=== PATIENT | female | born 1945 | race Caucasian/White ===

== ENCOUNTER 2016-08-03 11:49 | Outpatient (CLI) | payer MEDICARE ==
[2016-08-03 12:25] LABS: #Basophils 0.1 thou/uL (0.0-0.2); #Eosinphils 0.1 thou/uL (0.0-0.7); #Monocytes 0.4 thou/uL (0.11-0.59); #Neutrophils 3.5 thou/uL (1.40-6.50); %Eosinophils 1.4 % (0.0-10.0); %Lymphocytes 32.9 % (21.0-51.0); %Monocytes 7.3 % (0.0-10.0); Hematocrit 45.5 % (36.0-47.0); Mean Platelet Volume 5.8 fL (7.4-10.4); Red Blood Cell (RBC) Count 4.88 mill/uL (4.20-5.40)
[2016-08-03 12:32] LABS: ALT (SGPT) 25 U/L (0-55); AST (SGOT) 25 U/L (5-34); Alkaline Phosphatase 84 U/L (40-150); Anion Gap 17 mmol/L (10-20); BUN (Urea Nitrogen) 16 mg/dL (9.8-20.1); Bilirubin, Direct 0.2 mg/dL (0.1-0.3); Bilirubin, Total 0.6 mg/dL (0.2-1.2); Calc. Creatinine Clearance 0 mL/min (70-130); Calcium 9.3 mg/dL (7.8-10.44); Carbon Dioxide 18 mmol/L (23-31); Chloride 110 mmol/L (98-107); Estimated GFR-MDRD 68; LDL Cholesterol, Calculated 80 mg/dL; Protein, Total 7.3 g/dL (5.8-8.1)
== END 2016-08-03 11:50 | disposition home or self-care (01) ==
LOC: NAVSJIPCSP 11:49
PROVIDERS: ATTEND Family Medicine
DX: E78.00 Pure hypercholesterolemia, unspecified (principal); E11.9 Type 2 diabetes mellitus without complications; I10 Essential (primary) hypertension; H66.90 Otitis media, unspecified, unspecified ear; Z79.899 Other long term (current) drug therapy
CPT/HCPCS: 36415; 80048; 80061; 80076; 83036; 84443; 85025

== ENCOUNTER 2016-08-23 13:59 | Outpatient (CLI) | payer MEDICARE | END 2016-08-23 14:00 | disposition home or self-care (01) | LOC: NAVSJIPCSP 13:59 | PROVIDERS: ATTEND Family Medicine | DX: N75.1 Abscess of Bartholin's gland (principal) | CPT/HCPCS: 87070; 87205 ==

== ENCOUNTER 2016-11-09 14:37 | Outpatient (CLI) | payer MEDICARE ==
[2016-11-09 15:49] LABS: ALT (SGPT) 22 U/L (8-55); AST (SGOT) 20 U/L (5-34); Albumin 3.9 g/dL (3.4-4.8); Alkaline Phosphatase 75 U/L (40-150); Anion Gap 16 mmol/L (10-20); BUN (Urea Nitrogen) 17 mg/dL (9.8-20.1); Bilirubin, Direct 0.1 mg/dL (0.1-0.3); Bilirubin, Total 0.3 mg/dL (0.2-1.2); Calc. Creatinine Clearance 0 mL/min (70-130); Calcium 9.1 mg/dL (7.8-10.44); Carbon Dioxide 22 mmol/L (23-31); Cardiac Risk 3.6 (Less than 4.5); Chloride 109 mmol/L (98-107); Cholesterol 126 mg/dL (< 200 Desired); Estimated GFR-MDRD 66; Glucose 110 mg/dL (80-115); HDL Cholesterol 35 mg/dL (>60 Neg Risk); LDL Cholesterol, Calculated 44 mg/dL; Potassium 4.3 mmol/L (3.5-5.1); Protein, Total 6.8 g/dL (5.8-8.1); Sodium 143 mmol/L (136-145); Triglycerides 234 mg/dL (Less than 150)
[2016-11-09 15:59] LABS: #Basophils 0.1 thou/uL (0.0-0.2); #Eosinphils 0.1 thou/uL (0.0-0.7); #Lymphocytes 1.9 thou/uL (1.20-3.40); #Monocytes 0.5 thou/uL (0.11-0.59); #Neutrophils 3.6 thou/uL (1.40-6.50); %Basophils 1.1 % (0.0-1.0); %Eosinophils 2.3 % (0.0-10.0); %Lymphocytes 30.1 % (21.0-51.0); %Monocytes 8.1 % (0.0-10.0); %Neutrophils 58.3 % (42.0-75.0); Hemoglobin 13.9 g/dL (12.0-16.0); Mean Corpuscular Hemoglobin 30.7 pg (27.0-31.0); Mean Corpuscular Volume 93.1 fl (81.0-99.0); Mean Platelet Volume 6.2 fL (7.4-10.4); Platelet Count 205 thou/uL (130-400); RBC Distribution Width 11.8 % (11.5-14.5); Red Blood Cell (RBC) Count 4.53 mill/uL (4.20-5.40); White Blood Cell (WBC) Count 6.2 thou/uL (4.8-10.8)
[2016-11-09 17:16] LABS: Hemoglobin A1c 5.9 % (4.0-6.0)
== END 2016-11-09 14:38 | disposition home or self-care (01) ==
LOC: NAVSJIPCSP 14:37
PROVIDERS: ATTEND Nurse Practitioner Family
DX: E11.9 Type 2 diabetes mellitus without complications (principal); E78.00 Pure hypercholesterolemia, unspecified; I10 Essential (primary) hypertension; R53.83 Other fatigue; Z79.899 Other long term (current) drug therapy
CPT/HCPCS: 36415; 80048; 80061; 80076; 82607; 83036; 84443; 85025

== ENCOUNTER 2017-03-22 09:29 | Outpatient (CLI) | payer MEDICARE ==
[2017-03-22 12:29] LABS: #Basophils 0.1 thou/uL (0.0-0.2); #Eosinphils 0.1 thou/uL (0.0-0.7); #Monocytes 0.6 thou/uL (0.11-0.59); #Neutrophils 4.1 thou/uL (1.40-6.50); %Basophils 1.2 % (0.0-1.0); %Eosinophils 1.4 % (0.0-10.0); %Lymphocytes 28.6 % (21.0-51.0); %Monocytes 8.4 % (0.0-10.0); %Neutrophils 60.5 % (42.0-75.0); Mean Corpuscular HGB CONC 32.5 g/dL (32.0-36.0); Mean Corpuscular Hemoglobin 30.4 pg (27.0-31.0); Mean Corpuscular Volume 93.7 fl (81.0-99.0); Platelet Count 220 thou/uL (130-400); RBC Distribution Width 11.8 % (11.5-14.5); Red Blood Cell (RBC) Count 4.61 mill/uL (4.20-5.40); White Blood Cell (WBC) Count 6.8 thou/uL (4.8-10.8)
[2017-03-22 12:55] LABS: ALT (SGPT) 22 U/L (8-55); AST (SGOT) 20 U/L (5-34); Albumin 4.1 g/dL (3.4-4.8); Alkaline Phosphatase 83 U/L (40-150); Anion Gap 16 mmol/L (10-20); BUN (Urea Nitrogen) 12 mg/dL (9.8-20.1); Bilirubin, Direct 0.3 mg/dL (0.1-0.3); Bilirubin, Total 0.7 mg/dL (0.2-1.2); Calc. Creatinine Clearance 0 mL/min (70-130); Calcium 9.4 mg/dL (7.8-10.44); Carbon Dioxide 23 mmol/L (23-31); Cardiac Risk 3.2 (Less than 4.5); Chloride 105 mmol/L (98-107); Cholesterol 134 mg/dl (< 200 Desired); Estimated GFR-MDRD 76; Glucose 116 mg/dL (80-115); HDL Cholesterol 42 mg/dL (>60 Neg Risk); LDL Cholesterol, Calculated 58 mg/dL; Potassium 4.1 mmol/L (3.5-5.1); Sodium 140 mmol/L (136-145); Triglycerides 171 mg/dL (Less than 150)
[2017-03-22 13:07] LABS: Hemoglobin A1c 6.3 % (4.0-6.0)
== END 2017-03-22 09:30 | disposition home or self-care (01) ==
LOC: NAVSJIPCSP 09:29
PROVIDERS: ATTEND Family Medicine
DX: E11.9 Type 2 diabetes mellitus without complications (principal); I10 Essential (primary) hypertension; R53.83 Other fatigue; Z79.899 Other long term (current) drug therapy
CPT/HCPCS: 36415; 80048; 80061; 80076; 83036; 84443; 85025

== ENCOUNTER 2017-04-07 14:24 | Emergency (ER) | payer MEDICARE ==
[2017-04-07 15:50] LABS: #Basophils 0.1 thou/uL (0.0-0.2); #Lymphocytes 1.5 thou/uL (1.20-3.40); #Monocytes 0.5 thou/uL (0.11-0.59); #Neutrophils 5.7 thou/uL (1.40-6.50); %Basophils 0.8 % (0.0-1.0); %Eosinophils 0.6 % (0.0-10.0); %Lymphocytes 19.1 % (21.0-51.0); %Neutrophils 73.5 % (42.0-75.0); Hemoglobin 14.3 g/dL (12.0-16.0); Mean Corpuscular HGB CONC 32.6 g/dL (32.0-36.0); Mean Platelet Volume 6.8 fL (7.4-10.4); Platelet Count 234 thou/uL (130-400); RBC Distribution Width 11.5 % (11.5-14.5); Red Blood Cell (RBC) Count 4.76 mill/uL (4.20-5.40); White Blood Cell (WBC) Count 7.8 thou/uL (4.8-10.8)
[2017-04-07] MEDS ORDERED: Ondansetron HCl/PF 4 MG/2 ML Vial ONE ×2 (15:57→19:15)
[2017-04-07] MEDS ORDERED: Labetalol HCl 100 MG/20 ML VIAL ONE ×3 (15:57→19:49)
[2017-04-07 16:00] LABS: ALT (SGPT) 21 U/L (8-55); AST (SGOT) 18 U/L (5-34); Albumin 4.2 g/dL (3.4-4.8); Alkaline Phosphatase 87 U/L (40-150); Anion Gap 15 mmol/L (10-20); BUN (Urea Nitrogen) 13 mg/dL (9.8-20.1); Bilirubin, Total 0.7 mg/dL (0.2-1.2); CRP (Inflammatory) Less than 0.50 mg/dL (= or < 0.5); Calc. Creatinine Clearance 0 mL/min (70-130); Calcium 9.5 mg/dL (7.8-10.44); Carbon Dioxide 25 mmol/L (23-31); Chloride 105 mmol/L (98-107); Estimated GFR-MDRD 78; Globulin 3.4 g/dL (2.4-3.5); Glucose 136 mg/dL (80-115); Potassium 3.7 mmol/L (3.5-5.1); Protein, Total 7.6 g/dL (6.0-8.3); Sodium 141 mmol/L (136-145)
--- NOTE | 2017-04-07 16:20 | CT ---
CT BRAIN WITHOUT CONTRAST 04/07/17 HISTORY: Chronic headache and nausea. Neck pain. Eye pain. FINDINGS: No evidence of acute transcortical infarct, hemorrhage, midline shift or abnormal extra-axial fluid collections are seen. The ventricular size is normal and the basilar cisterns patent. There is a sma ll focus of decreased echogenicity in the left thalamus. The bony calvarium is intact. The visualiz ed paranasal sinuses and mastoid air cells are well aerated. IMPRESSION: 1. 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 2. No CT evidence of acute intracranial hemorrhage. POS: [facility]
--- NOTE | 2017-04-07 16:26 | CT ---
CT MAXILLOFACIAL NONCONTRAST: HISTORY: A 71-year-old female with chronic sinusitis. Headache and jaw pain. FINDINGS: The frontal, ethmoid, maxillary, and sphenoid sinuses are clear. Bilateral tympanomastoid cavities are grossly clear. Nasal cavity is clear. Nasal septal deviation to the left with left-sided nasal spur. No evidence of osseous dehiscence. No intraorbital edema, gas, or mass. Extraocular muscle s are symmetrical. No high-grade pathology of TMJs identified. No destructive osseous lesion invol ving the mandible. No pathology identified involving the submandibular, parotid, parapharyngeal, an d welding foreman spaces. Nonspecific asymmetry of pharyngeal mucosal space of the oropharynx. IMPRESSION: Negative. POS: [facility]
--- NOTE | 2017-04-07 16:28 | RAD ---
RADIOGRAPH RIGHT ANKLE 3 VIEWS: HISTORY: A 71-year-old female status post twisting injury of right ankle. FINDINGS: There is a tiny avulsion fracture fragment minimally distally displaced from the distal tip of the l ateral malleolus. There is overlying lateral soft tissue swelling. Ankle mortise is symmetrical. Talar dome is maintained. No other fracture is identified. IMPRESSION: No acute, traumatic, minimally displaced, avulsion fracture at distal tip of lateral malleolus. POS: [facility]
[2017-04-07] MEDS ORDERED: Promethazine HCl 25 MG/ML VIAL ONE (19:49)
[2017-04-07] MEDS ORDERED: SUMAtriptan Succinate 6 MG/0.5 ML VIAL ONE (19:49)
[2017-04-07] MEDS ORDERED: Sodium Chloride 0.9% 1,000 ML ONE (19:49)
[2017-04-07] MEDS ORDERED: methylPREDNISolone Sod Succ/PF 125 MG/2 ML VIAL ONE (19:49)
[2017-04-07] MEDS ORDERED: Lorazepam 2 MG/ML VIAL ONE (20:28)
== END 2017-04-07 21:33 | disposition home or self-care (01) ==
LOC: NAV ERS 14:24
DX: G44.209 Tension-type headache, unspecified, not intractable (principal); I10 Essential (primary) hypertension; M54.12 Radiculopathy, cervical region; E11.9 Type 2 diabetes mellitus without complications; E78.5 Hyperlipidemia, unspecified; F41.9 Anxiety disorder, unspecified; F32.9 Major depressive disorder, single episode, unspecified; Z79.84 Long term (current) use of oral hypoglycemic drugs; Z79.899 Other long term (current) drug therapy
CPT/HCPCS: 70450; 70486; 80053; 85025; 86140; 96365; 96372; 96375; 96376; J2060; J2405; J2550; J2930; J3030; J7050

== ENCOUNTER 2017-05-03 12:56 | Outpatient (CLI) | payer MEDICARE ==
--- NOTE | 2017-05-03 16:48 | RAD ---
RIGHT ANKLE THREE VIEWS: History: 71-year-old female with follow up avulsion fracture distal fibula. Comparison: 04-07-17 FINDINGS: There is some lateral soft tissue swelling. Again noted is displaced probably avulsion type fracture off the distal fibular tip. No evidence for other acute fracture. No evidence for an overt talar do me osteochondral lesion. IMPRESSION: Displaced chip type fracture off the distal fibular tip. Minimal lateral soft tissue swelling. No ot her acute process. POS: [facility]
== END 2017-05-03 12:57 | disposition home or self-care (01) ==
LOC: NAV RAD 12:56
PROVIDERS: ATTEND Family Medicine
DX: S82.831A Other fracture of upper and lower end of right fibula, initial encounter for closed fracture (principal)

== ENCOUNTER 2018-02-04 07:08 | Emergency (ER) | payer MEDICARE ==
[2018-02-04 07:54] LABS: Bilirubin Negative (Negative); Blood, Urine Moderate (Negative); Glucose, Urine (Dipstick) Negative (Negative); Leukocyte Large (Negative); Nitrite Negative (Negative); Protein, Urine (Dipstick) Trace mg/dL (Neg-Trace); Urobilinogen 0.2 mg/dL (0.2-1.0); pH, Urine 5.5 (5.0-9.0)
[2018-02-04 07:55] LABS: Clarity Hazy (Clear)
[2018-02-04 07:57] LABS: Bacteria/HPF 2+ HPF (None Seen)
[2018-02-04 08:23] LABS: #Basophils 0.1 thou/uL (0.0-0.2); #Eosinphils 0.1 thou/uL (0.0-0.7); #Lymphocytes 1.6 thou/uL (1.20-3.40); %Basophils 0.5 % (0.0-1.0); %Eosinophils 0.5 % (0.0-10.0); %Lymphocytes 12.6 % (21.0-51.0); %Monocytes 7.9 % (0.0-10.0); %Neutrophils 78.5 % (42.0-75.0); Hemoglobin 14.3 g/dL (12.0-16.0); Mean Corpuscular HGB CONC 32.7 g/dL (32.0-36.0); Mean Corpuscular Hemoglobin 29.2 pg (27.0-31.0); Mean Corpuscular Volume 89.3 fL (78.0-98.0); Mean Platelet Volume 7.9 fL (7.4-10.4); Platelet Count 239 thou/uL (130-400); RBC Distribution Width 11.5 % (11.5-14.5); Red Blood Cell (RBC) Count 4.91 mill/uL (4.20-5.40); White Blood Cell (WBC) Count 12.7 thou/uL (4.8-10.8)
[2018-02-04 08:37] LABS: ALT (SGPT) 19 U/L (8-55); AST (SGOT) 17 U/L (5-34); Albumin 4.1 g/dL (3.4-4.8); Alkaline Phosphatase 96 U/L (40-150); Anion Gap 16 mmol/L (10-20); BUN (Urea Nitrogen) 11 mg/dL (9.8-20.1); Bilirubin, Total 0.5 mg/dL (0.2-1.2); Calc. Creatinine Clearance 0 mL/min (70-130); Calcium 9.9 mg/dL (7.8-10.44); Carbon Dioxide 25 mmol/L (23-31); Chloride 99 mmol/L (98-107); Estimated GFR-MDRD 76; Globulin 3.5 g/dL (2.4-3.5); Glucose 146 mg/dL (83-110); Lipase 12 U/L (8-78); Potassium 3.3 mmol/L (3.5-5.1); Protein, Total 7.6 g/dL (6.0-8.3); Sodium 137 mmol/L (136-145)
[2018-02-04] MEDS ORDERED: cefTRIAXone\\ROCEPHIN 1 GM VIAL ONE (09:14)
[2018-02-04] MEDS ORDERED: Levofloxacin 500 mg/D5W 100 ml Premix Bag ONE (09:15)
--- NOTE | 2018-02-04 10:08 | RAD ---
ABDOMEN 2 VIEWS AND CHEST 1 VIEW: HISTORY: A 72-year-old female with a history of abdominal pain. FINDINGS: No acute process in the chest. In the abdomen, there is some gas and fecal material in the colon. N o evidence for large or small bowel obstruction. No overt calculus. No free air. IMPRESSION: Unremarkable chest 1 view and abdomen 2 views. POS: [facility]
== END 2018-02-04 10:23 | disposition home or self-care (01) ==
LOC: NAV ERS 07:08
DX: N30.01 Acute cystitis with hematuria (principal); K59.00 Constipation, unspecified; E11.9 Type 2 diabetes mellitus without complications; E78.5 Hyperlipidemia, unspecified; I10 Essential (primary) hypertension; F41.9 Anxiety disorder, unspecified; F32.9 Major depressive disorder, single episode, unspecified; Z87.442 Personal history of urinary calculi; Z79.899 Other long term (current) drug therapy; Z79.84 Long term (current) use of oral hypoglycemic drugs
CPT/HCPCS: 74022; 80053; 81003; 81015; 82150; 83690; 85025; 96365; J0696; J1956

== ENCOUNTER 2018-02-13 08:56 | Outpatient (CLI) | payer OTHER ==
[2018-02-13 09:28] LABS: Bilirubin Small (Negative); Blood, Urine Moderate (Negative); Clarity Slightly Cloudy (Clear); Glucose, Urine (Dipstick) Negative (Negative); Leukocyte Small (Negative); Nitrite Negative (Negative); Protein, Urine (Dipstick) 30 mg/dL (Neg-Trace); Specific Gravity, Urine 1.025 (1.005-1.030); Urobilinogen 0.2 mg/dL (0.2-1.0); pH, Urine 5.5 (5.0-9.0)
== END 2018-02-13 08:57 | disposition home or self-care (01) ==
LOC: NAV LAB 08:56
PROVIDERS: ATTEND Pathology Anatomic Pathology & Clinical Pathology
DX: Z00.00 Encounter for general adult medical examination without abnormal findings (principal)
CPT/HCPCS: 81003

== ENCOUNTER 2019-04-16 11:14 | Outpatient (CLI) | payer MEDICARE ==
--- NOTE | 2019-04-16 12:42 | RAD ---
LEFT SHOULDER THREE VIEWS: HISTORY: Left shoulder pain. FINDINGS: No fracture, dislocation or bony destruction is seen. POS: [facility]
== END 2019-04-16 11:15 | disposition home or self-care (01) ==
LOC: NAV RAD 11:14
PROVIDERS: ATTEND Nurse Practitioner Adult Health
DX: M25.512 Pain in left shoulder (principal)